=== PATIENT | female | born 1945 | race African-American/Black ===

== ENCOUNTER 2017-11-20 09:32 | Day surgery (SDC) | payer OTHER, MEDICAID ==
[~2017-11-20 09:32] MED LIST: DIPRIVAN VIAL ONE
[2017-11-20] MEDS ORDERED: D5 LR 1000 ML 1,000 ML IV ONE (09:46)
[2017-11-20 12:26] VITALS: BP 124/64
== END 2017-11-20 12:30 | disposition home or self-care (01) ==
LOC: SURG1 09:32
PROVIDERS: ATTEND Internal Medicine Gastroenterology
PROC: 0DJD8ZZ Inspection of Lower Intestinal Tract, Via Natural or Artificial Opening Endoscopic (ICD-10-PCS; principal; 2017-11-20 13:30)
DX: Z12.11 Encounter for screening for malignant neoplasm of colon (principal); K63.89 Other specified diseases of intestine; K64.0 First degree hemorrhoids
CPT/HCPCS: 99100; A4217; J3490; J7120

== ENCOUNTER → 2018-02-20 | Outpatient (CLI) | payer OTHER, MEDICAID ==
--- NOTE | 2018-02-23 08:22 | MRI ---
HISTORY: Low back pain Study: MRI lumbar spine without contrast Comparison: 08/20/2016, 11/08/2015 Technique: Multiplanar multi-sequence MRI of the lumbar spine was obtained. Sagittal T1, sagittal T2 , and stir weighted images, axial T1, and axial T2 images were obtained. Findings: There is grade 1 anterolisthesis of L4 on L5 due to facet arthropathy. No pars defects are seen. Lumb ar alignment is otherwise normal. No abnormal cord or marrow signal identified. The conus of the cor d terminates normally. The surrounding soft tissues are within normal limits. Vertebral body heights are preserved. Multilevel spondylosis and disc desiccation is present. T12 -- L1: No spinal or foraminal stenosis identified. L1 -- L2: Mild facet arthropathy without significant spinal or foraminal stenosis. L2 -- L3: Moderate facet hypertrophic changes without significant spinal or foraminal stenosis. L3 -- L4: Moderate facet hypertrophy changes without significant spinal or foraminal stenosis. L4 -- L5: Advanced facet degenerative changes resulting in grade 1 anterolisthesis of L4 on L5 in con junction with a broad-based disc bulge and spondylitic changes resulting in moderate to severe spinal canal stenosis, moderate lateral recess stenosis and bilateral foraminal stenosis. L5 -- S1: Large broad-based disc bulge and spondylitic changes are seen in conjunction with facet art hropathy resulting in moderate to severe bilateral lateral recess and foraminal stenosis. IMPRESSION: 1. At L4-5 there is moderate to severe spinal stenosis and moderate bilateral foraminal and lateral r ecess stenosis. 2. Moderate to severe bilateral foraminal and lateral recess stenosis at L5-S1. Reported By:
== END | disposition home or self-care (01) | DRG 552 ==
LOC: RAD 14:08
PROVIDERS: ATTEND Internal Medicine
DX: M54.5 Low back pain (principal); M48.061 Spinal stenosis, lumbar region without neurogenic claudication
CPT/HCPCS: 72148

== ENCOUNTER 2018-03-05 14:42 | Emergency (ER) | payer OTHER, MEDICAID ==
[2018-03-05 14:48] VITALS: BP 139/79; BMI 26.5
[2018-03-05] MEDS ORDERED: TORADOL 30 MG VIAL IVP ONE (14:52)
[2018-03-05] MEDS ORDERED: TORADOL 30 MG VIAL ONE (14:54)
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
--- NOTE | 2018-03-05 15:32 | RAD ---
Indication: Pain Exam: Right knee series Technique: AP and lateral views. Findings: There is moderate joint space narrowing medially in the knee. No fracture or dislocation is seen. The patella is intact and there is no significant joint effusion. No calcifications are seen i n the joint. Impression: Moderate osteoarthritic changes medially in the knee with no acute bony abnormality seen. Reported By:
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
== END 2018-03-05 16:27 | disposition home or self-care (01) ==
LOC: ER 14:54
DX: Z04.1 Encounter for examination and observation following transport accident (principal); M17.9 Osteoarthritis of knee, unspecified; M47.812 Spondylosis without myelopathy or radiculopathy, cervical region
CPT/HCPCS: 70450; 72125; 73560; 93005; 96365; 96374; 99282; 99283; J1885

== ENCOUNTER 2018-03-07 11:47 | Emergency (ER) | payer OTHER, MEDICAID ==
[2018-03-07 11:55] VITALS: BP 129/59; BMI 26.1
[2018-03-07] MEDS ORDERED: TORADOL 60 MG VIAL IM ONE (12:35)
[2018-03-07] MEDS ORDERED: SOLU-Medrol 125 MG VIAL IM ONE (12:35)
[2018-03-07] MEDS ORDERED: ZANAFLEX PO STA (12:36)
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
[2018-03-07] MEDS ORDERED: SOLU-Medrol 125 MG VIAL ONE (12:55)
[2018-03-07] MEDS ORDERED: TORADOL 60 MG VIAL ONE (12:55)
== END 2018-03-07 13:09 | disposition home or self-care (01) ==
LOC: ER 11:59
DX: M51.36 Other intervertebral disc degeneration, lumbar region (principal); M62.838 Other muscle spasm; V87.7XXD Person injured in collision between other specified motor vehicles (traffic), subsequent encounter
CPT/HCPCS: 96372; 99282; J1885; J2930